=== PATIENT | female | born 1965 | race Caucasian/White ===

== ENCOUNTER 2020-02-04 12:38 | Outpatient (CLI) | payer OTHER, SELFPAY ==
--- NOTE | 2020-02-04 12:52 | MM_ITS ---
WS: [id number] BILATERAL DIGITAL SCREENING MAMMOGRAM WITH CAD CLINICAL INFORMATION: SCREEN HISTORY: Screening mammogram. No current complaints. COMPARISON: TECHNIQUE: Bilateral CC and MLO views. FINDINGS: Fatty-replaced breasts bilaterally. No suspicious focal mass, asymmetry, calcifications, or cloud infrastructure architect ural distortion. No evidence of malignancy. Lucent centered calcification left breast. MM/[id number] IMPRESSION: BI-RADS: 2-Benign FOLLOW UP: 1 Year Follow-up Recommend return to annual screening mammography.
== END 2020-02-04 12:39 | disposition home or self-care (01) ==
LOC: RADSHAW 12:41
PROVIDERS: PCP Nurse Practitioner Family; Visit Provider Nurse Practitioner Family
DX: Z12.31 Encounter for screening mammogram for malignant neoplasm of breast (principal)
CPT/HCPCS: 77067

== ENCOUNTER 2022-02-15 09:21 | Outpatient (CLI) | payer OTHER, SELFPAY ==
--- NOTE | 2022-02-15 10:04 | MM_ITS ---
WS: [id number] BILATERAL SCREENING DIGITAL TOMOSYNTHESIS MAMMOGRAM WITH CAD HISTORY: SCREENING COMPARISON: 02/04/2020 and 04/21/2018 Bilateral CC and MLO views with tomosynthesis and synthetic mammography submitted. Computer aided det ection analyzed. Breast composition: There are scattered areas of fibroglandular density. No suspicious masses, microc alcifications or architectural distortion. Benign calcification LEFT breast. MM/[id number] IMPRESSION: BI-RADS: 2-Benign FOLLOW UP: 1 Year Follow-up
== END 2022-02-15 09:22 | disposition home or self-care (01) ==
LOC: RAD 09:21
PROVIDERS: PCP Nurse Practitioner Family; Visit Provider Physician Assistant
DX: Z12.31 Encounter for screening mammogram for malignant neoplasm of breast (principal)
CPT/HCPCS: 77063; 77067

== ENCOUNTER 2022-03-10 08:28 | Day surgery (SDC) | payer SELFPAY ==
[2022-03-08 10:13] VITALS: BMI 30.5
[2022-03-10 08:54] VITALS: BP 159/103; PULSE 93; RESP 18; TEMP 35.8; O2SAT 97
--- NOTE | 2022-03-10 09:01 | P.ANESASSM_ITS ---
Pre-Anesthetic Assessment Height/Weight: Height 1.7 m Weight 88.451 kg Temp Pulse Resp BP Pulse Ox O2 Del Method 96.4 F L 93 18 159/103 97 03/10/22 08:54 03/10/22 08:54 03/10/22 08:54 03/10/22 08:54 03/10/22 08:54 03/10/22 08:54 Operation Date: 03/10/22 10:00 Proposed Procedures p EGD 03638, Colonoscopy 94159,R10.9(Not Applicable) - DO yvette Rudd Colonoscopy(Not Applicable) - Juan Hogue DO Familial anesthetic complications: slow to wake up Was Beta Ruth taken within 24 hours: N/A Was Clonidine taken within 24 hours: N/A Last intake: Intake Last Liquid Date 03/09/22 Last Liquid Time 22:00 Last Solid Date 03/08/22 Last Solid Time 21:00 Social No alcohol and No tobacco Exam alert, oriented x 3, clear to auscultation bilaterally and regular rate & rhythm Airway Mallampati: Class II Dentition: full CV/HEM Hypertension GI Gastroesophageal Reflux Disease Anesthetic Plan ASA status: 2 Anesthesia: MAC Risk of > 500 ml blood loss (7ml/kg in children): No Medications/Allergies Home Medications Medication Instructions Recorded Confirmed Last Taken Type aliskiren 300 mg tablet (Tekturna) 300 mg PO DAILY 12/09/21 03/10/22 03/10/22 06:30 History aspirin 81 mg tablet,delayed 81 mg PO DAILY 12/09/21 03/10/22 02/23/22 History release atorvastatin 40 mg tablet 40 mg PO DAILY 12/09/21 03/10/22 03/09/22 History esomeprazole magnesium 20 mg 20 mg PO BID 12/09/21 03/10/22 03/10/22 06:30 History capsule,delayed release (Nexium) hydrochlorothiazide 25 mg tablet 25 mg PO DAILY 12/09/21 03/10/22 03/09/22 History pseudoephedrine HCl 30 mg tablet 30 mg PO Q6H PRN Allergy Symptoms 12/09/21 03/10/22 03/09/22 History (Sudafed) Allergies Allergy/AdvReac Type Severity Reaction Status Date / Time amoxicillin Allergy ALGY-Difficulty Verified 03/10/22 08:46 Breathing codeine Allergy ADR-Halluci Verified 03/10/22 [facility] History (Updated 12/09/21 @ 13:45 by Juan Hogue DO) Diverticulitis of large intestine Dysuria-frequency syndrome GERD (gastroesophageal reflux disease) Hyperlipidemia Hypertension Surgical History History of History of hysterectomy Social History Smoking and tobacco status: never smoked Data Anesthesia Cardiac Studies: No Data to Display
[2022-03-10] MEDS: sodium chloride 0.9% 1,000 ML 30 ML IV (09:08)
--- NOTE | 2022-03-10 09:28 | PM.HP ---
Providers/Chief Complaint Primary Care Provider: SUZE Penaloza Chief Complaint: GERD, need for colon cancer screening History of Present Illness Marielle Jasso is a 57 year old female here for EGD and colonoscopy Review of Systems General: Reports: 10 or more systems reviewed and unremarkable except in HPI and below Medications/Allergies Home Medications Medication Instructions Recorded Confirmed Last Taken Type aliskiren 300 mg tablet (Tekturna) 300 mg PO DAILY 12/09/21 03/10/22 03/10/22 06:30 History aspirin 81 mg tablet,delayed 81 mg PO DAILY 12/09/21 03/10/22 02/23/22 History release atorvastatin 40 mg tablet 40 mg PO DAILY 12/09/21 03/10/22 03/09/22 History esomeprazole magnesium 20 mg 20 mg PO BID 12/09/21 03/10/22 03/10/22 06:30 History capsule,delayed release (Nexium) hydrochlorothiazide 25 mg tablet 25 mg PO DAILY 12/09/21 03/10/22 03/09/22 History pseudoephedrine HCl 30 mg tablet 30 mg PO Q6H PRN Allergy Symptoms 12/09/21 03/10/22 03/09/22 History (Sudafed) Allergies Allergy/AdvReac Type Severity Reaction Status Date / Time amoxicillin Allergy ALGY-Difficulty Verified 03/10/22 08:46 Breathing codeine Allergy ADR-Halluci Verified 03/10/22 08:46 nating PFSH Acute PFSH: Medical History Diverticulitis of large intestine Dysuria-frequency syndrome GERD (gastroesophageal reflux disease) Hyperlipidemia Hypertension Surgical History History of History of hysterectomy Social History Smoking and tobacco status: never smoked Vitals/I&O/Wt Last Vital Signs Temp 96.4 F L 03/10/22 08:54 Pulse 93 03/10/22 08:54 Resp 18 03/10/22 08:54 BP 159/103 03/10/22 08:54 Pulse Ox 97 03/10/22 08:54 O2 Del Method 03/10/22 08:54 Weight last 48 hrs Weight 195 lb Physical Exam Narrative: General : Patient is well developed , no acute distress, oriented x3 Head : Normal cephalic, a-traumatic. Ears : Pinnae and external canal are normal. Hearing is normal. Eyes : PERRLA, Sclera and injection are normal. No conjunctival discharge. Nose : Mucous membranes are without erythema. Throat : buccal mucosa is normal, gums are without significant recession or hypertrophy. Lungs : Equal chest rise bilaterally, no use of accessory muscles, trachea is midline. Cor : Rate and rhythm are normal. Abdomen : Soft, ND, NT, no g/r/m Extremities : No edema, no cyanosis or clubbing, dorsalis pedis pulses are present bilaterally, non-tender to palpation of calves. Upper extremities are normal bilaterally. Back : non-tender to palpation, no CVA tenderness. Neuro : CN II - XII intact, Upper and lower extremities have equal and full strength A&P Assessment and plan (1) GERD (gastroesophageal reflux disease): Status: Acute (2) Colon cancer screening: Status: Acute Plan EGD Colonoscopy The risks and benefits of the procedure, including bleeding, infection, intestinal perforation requiring surgery, missed lesion, or explained to the patient. She is understanding of the risks and wishes to proceed. Attestations Medical Necessity Statement*: Will go home Coding Level of Care Code Acute Financial Services Officer for [facility] Fwd Diagnoses GERD (gastroesophageal reflux disease) K21.9 Colon cancer screening Z12.11
[2022-03-10 11:00] VITALS: BP 154/94; PULSE 90; RESP 16; RESP 18; TEMP 36.3; O2SAT 93; O2SAT 97
[2022-03-10 11:10] VITALS: BP 154/99; PULSE 80; RESP 18; O2SAT 98
[2022-03-10] MEDS: ondansetron 2 mg/ML SDV 2 mL 4 MG IVP (11:28)
--- NOTE | 2022-03-10 12:14 | ANE.PACU2 ---
Inpatient post-anesthesia follow up: Airway intact: Yes Vital signs: Temperature 97.3 F Pulse Rate 80 Respiratory Rate 18 Blood Pressure 154/99 Pulse Oximetry 98 Oxygen Delivery Me thod Room Air Oxygen Flow Rate 3 Fraction of Inspir ed Oxygen Hydration adequate: Yes Nausea and vomiting: No Pain level: 1 Mental status: Baseline
== END 2022-03-10 12:30 | disposition home or self-care (01) ==
PROVIDERS: PCP Nurse Practitioner Family; Visit Provider Surgery
PROC: 0DJD8ZZ Inspection of Lower Intestinal Tract, Via Natural or Artificial Opening Endoscopic (ICD-10-PCS; CPT 45378; 2022-03-10 10:00)
PROC: 0DJ08ZZ Inspection of Upper Intestinal Tract, Via Natural or Artificial Opening Endoscopic (ICD-10-PCS; CPT 43235; 2022-03-10 10:00)
DX: Z12.11 Encounter for screening for malignant neoplasm of colon (principal); K29.50 Unspecified chronic gastritis without bleeding; B96.81 Helicobacter pylori [H. pylori] as the cause of diseases classified elsewhere; K62.89 Other specified diseases of anus and rectum; K21.9 Gastro-esophageal reflux disease without esophagitis; I10 Essential (primary) hypertension; E78.5 Hyperlipidemia, unspecified; Z79.82 Long term (current) use of aspirin; Z88.0 Allergy status to penicillin; Z88.5 Allergy status to narcotic agent
CPT/HCPCS: 43239; 45380; 88305; 96374; J2405; J2704; J7030

== ENCOUNTER 2023-12-06 11:27 | Outpatient (CLI) | payer SELFPAY ==
--- NOTE | 2023-12-06 11:30 | MM_ITS ---
WS: [id number] VIEWS: MLO and CC views both breasts. 3D digital tomosynthesis is also included in this exam. Comparison made with prior exam of 11/06/2012. 01/08/2014. 03/26/2015. 08/06/2016. 04/21/2018. 02/04/2020. 02/15/2022.. Findings: There was no sign of mass, architectural distortion or suspicious calcification in either breast. The breasts are almost entirely fatty MM/[id number] Impression: BI-RADS: 1-Negative FOLLOW-UP: 1 Year Follow-up This mammogram was also analyzed by the Computer Aided Detection System R2 [employer]ag [employer].
== END 2023-12-06 11:28 | disposition home or self-care (01) ==
LOC: MOBLMAM 11:35
PROVIDERS: PCP Nurse Practitioner Family; Visit Provider Nurse Practitioner Family
DX: Z12.31 Encounter for screening mammogram for malignant neoplasm of breast (principal); R92.313 Mammographic fatty tissue density, bilateral breasts
CPT/HCPCS: 77063; 77067

== ENCOUNTER 2025-04-30 11:29 | Outpatient (CLI) | payer OTHER, SELFPAY ==
--- NOTE | 2025-04-30 11:40 | MM_ITS ---
WS: [id number] BILATERAL 3D TOMOSYNTHESIS DIGITAL SCREENING MAMMOGRAPHY WITH CAD CLINICAL INFORMATION: SCREENING HISTORY: Screening mammogram. No current complaints. COMPARISON: 2023 TECHNIQUE: Bilateral CC and MLO views. FINDINGS: Scattered fibroglandular densities bilaterally. No suspicious focal mass, asymmetry, calcifications, or architectural distortion. No evidence of malignancy. MM/MM scr BI tomosynthesis [id number] IMPRESSION: DENSITY: There are scattered areas of fibroglandular density. BI-RADS: 1 - Negative. FOLLOW UP: 1 Year Follow-up Recommend return to annual screening mammography.
== END 2025-04-30 11:30 | disposition home or self-care (01) ==
PROVIDERS: PCP Nurse Practitioner Family; Visit Provider Nurse Practitioner Family
DX: Z12.31 Encounter for screening mammogram for malignant neoplasm of breast (principal); R92.323 Mammographic fibroglandular density, bilateral breasts
CPT/HCPCS: 77063; 77067